=== PATIENT | female | born 1935 | race Hispanic/Latino ===

== ENCOUNTER 2022-07-06 10:18 | Outpatient (CLI) | payer MEDICARE ==
[2022-07-06] MEDS ORDERED: Iopamidol 300 61% 100 ML VIAL FS ONE (11:29)
== END 2022-07-06 10:19 | disposition home or self-care (01) ==
LOC: CSHCT 10:18
PROVIDERS: ATTEND Family Medicine Sports Medicine
DX: R22.1 Localized swelling, mass and lump, neck (principal)
CPT/HCPCS: 70491

== ENCOUNTER 2022-12-04 16:58 | Emergency (ER) | payer MEDICARE | END 2022-12-04 18:19 | disposition home or self-care (01) | LOC: CSHERS 16:58 | DX: K94.23 Gastrostomy malfunction (principal); I10 Essential (primary) hypertension | CPT/HCPCS: 99282 ==

== ENCOUNTER 2024-12-08 09:57 | Outpatient (CLI) | payer MEDICARE ==
[2024-12-08] MEDS ORDERED: Iopamidol 300 61% 100 ML VIAL FS ONE (13:07)
== END 2024-12-08 09:58 | disposition home or self-care (01) ==
LOC: CSHCT 09:57
PROVIDERS: ATTEND Radiology Radiation Oncology
DX: C30.0 Malignant neoplasm of nasal cavity (principal)
CPT/HCPCS: 70491; 71260; Q9967

== ENCOUNTER 2025-03-16 22:13 | Emergency (ER) | payer MEDICARE ==
[2025-03-16] MEDS ORDERED: AFRIN NASAL MIST 15 ML BOT ONE (22:32)
[2025-03-16] MEDS ORDERED: Silver Nitrate Application 1 EACH ONE (23:05)
== END 2025-03-17 00:02 | disposition home or self-care (01) ==
LOC: CSHERS 22:13
DX: R04.0 Epistaxis (principal); I10 Essential (primary) hypertension
CPT/HCPCS: 30901